=== PATIENT | female | born 1935 | race Caucasian/White ===

== ENCOUNTER 2017-03-30 07:05 | Day surgery (SDC) | payer MEDICARE, MEDICAID ==
[~2017-03-30] VITALS: Ht 160 cm; Wt 83.9 kg
[~2017-03-30 07:05] MED LIST: AMLO2.5T45 PO; ASPI-1035 PO; CARV25TA47 PO; FAMO20TA8 PO; HYDR-2510 PO; LEVO88TA7 PO; LOSA100T14 PO; SUCR1ORA PO
[2017-03-30] MEDS ORDERED: SKIN ADHESIVE 0.7 GM EA TOP ONE (07:33)
[2017-03-30] MEDS ORDERED: BUPIVACAINE HCL 0.5% (5MG/ML) 50ML ONE (07:34)
[2017-03-30 07:46] LABS: GLUCOSE URINE NEGATIVE (NEGATIVE); KETONES URINE NEGATIVE (NEGATIVE); LEUKOCYTE ESTERASE URINE 1+ (NEGATIVE); NITRITE URINE NEGATIVE (NEGATIVE); OCCULT BLOOD URINE NEGATIVE (NEGATIVE); PROTEIN URINE NEGATIVE (NEGATIVE); SPECIFIC GRAVITY URINE 1.018 (1.005-1.030); UROBILINOGEN URINE 0.2 E.U./dL (0.2-1.0)
[2017-03-30 07:53] LABS: CLARITY URINE CLEAR (CLEAR); COLOR URINE YELLOW (YELLOW)
[2017-03-30] MEDS ORDERED: SUCR1TAB PO (07:56)
[2017-03-30 08:09] LABS: BACTERIA URINE TRACE; RBC URINE NONE SEEN /hpf (0-2); SQUAMOUS EPITHELIAL CELL URINE 1+ /lpf (RARE/1+)
[2017-03-30 08:10] LABS: MUCUS URINE 1+ /lpf (< = 2+)
[2017-03-30] MEDS ORDERED: LACTATED RINGERS 1,000 ML IV SCH (08:15)
[2017-03-30] MEDS ORDERED: LABETALOL HCL 20MG/4ML CARPUJECT IV PRN (10:15)
[2017-03-30] MEDS ORDERED: MEPERIDINE HCL/PF 25MG/ML CPJ IV PRN (10:15)
[2017-03-30] MEDS ORDERED: ONDANSETRON HCL 4MG/2ML VIAL IV PRN (10:15)
[2017-03-30] MEDS ORDERED: EPHEDRINE SULFATE 50MG/ML VIAL ONE (10:31)
[2017-03-30] MEDS ORDERED: GLYCOPYRROLATE 0.2 MG/ML 2ML VIAL ONE (10:31)
[2017-03-30] MEDS ORDERED: DEXAMETHASONE 4MG/ML 1ML VIAL ONE (10:31)
[2017-03-30] MEDS ORDERED: CEFAZOLIN SODIUM 1000MG/VIAL ONE (10:31)
[2017-03-30] MEDS: HYDROMORPHONE HCL/PF 2MG/ML CPJ IV PRN ×3 (11:40→12:26)
[2017-03-30 12:26] VITALS: BP 125/60
== END 2017-03-30 12:40 | disposition home or self-care (01) ==
LOC: OR 07:05
PROVIDERS: ATTEND Surgery
DX: K43.9 Ventral hernia without obstruction or gangrene (principal); E03.9 Hypothyroidism, unspecified; M19.90 Unspecified osteoarthritis, unspecified site
CPT/HCPCS: 49560; 49568; 81001; C1781; G0168; J0171; J0690; J1100; J1170; J3490; J7120